=== PATIENT | male | born 1955 | race Caucasian/White ===

== ENCOUNTER 2018-04-10 12:34 | Inpatient (IN) ==
[2018-04-10] MEDS ORDERED: predniSONE 20 MG TABLET PO ONE (12:49)
[2018-04-10] MEDS ORDERED: Ipratropium/Albuterol Neb 3 ML IH ONE (12:49)
--- NOTE | 2018-04-10 13:04 | Emergency Department Note ---
Disposition Clinical Impression: Acute exacerbation of chronic obstructive airways disease, Elevated troponin, ESRD (end stage renal disease) Community acquired pneumonia Qualifiers: Laterality: right Lung location: lower lobe of lung Qualified Code(s): J18.1 - Lobar pneumonia, unspecified organism Disposition: Admitted As Inpatient Time of Disposition: 14:09 SOB HPI - General Chief Complaint: ED Shortness of Breath/Dyspnea Stated Complaint: "low O2 Sat" Time Seen by Provider: 04/10/18 12:39 Source: patient Mode of arrival: ambulatory Limitations: no limitations Nursing Notes Reviewed: Yes Vital Signs Reviewed: Yes - History of Present Illness 62-year-old male with history of COPD wearing 2.5 L nasal cannula oxygen around- the-clock, ESRD on dialysis MWF with [facility] Ortiz, arrives to the emergency room shortness of breath. The patient was diagnosed with mycoplasma pneumonia roughly 1 month ago. The patient was prescribed anabolic and was admitted to the hospital. The patient was discharged home. The patient states that since then he is sobering short of breath but is progressively gotten worse. The patient states that he has associated chest pain is been ongoing past month well. In addition the patient is been increasing his O2 demand from 2.5-3 L nasal cannula. The patient states that this is much worse. He went to his PCP today and he was noted to be 74% on his 3 L nasal cannula. He was sent over to the emergency room for evaluation. Arrival emergency department the patient using accessory muscles as well as tripoding slightly. The patient was in mild to moderate respiratory distress. He was able to speak in 4-5 word sentences. The patient was quickly placed on BiPAP and he will come to our monitor. Labs and chest x-ray are pending at this time. - Related Data Home Medications Medication Instructions Recorded Confirmed Gemfibrozil [Lopid] 600 mg PO DAILY 07/07/15 04/10/18 Insulin ASPART [NovoLOG] 2 - 7 unit SQ ACHS 07/07/15 04/10/18 Ipratropium/Albuterol Sulfate 4 gm IH QID PRN 07/07/15 04/10/18 [Combivent Respimat Inhal [place]] Levothyroxine [Synthroid] 150 mcg PO DAILY 07/07/15 04/10/18 Pravastatin Sodium [Pravachol] 40 mg PO DAILY 07/07/15 04/10/18 Acetaminophen 650 mg PO BID 06/07/16 04/10/18 Montelukast [Singulair] 10 mg PO HS 06/07/16 04/10/18 Pantoprazole Sodium [Protonix] 20 mg PO DAILY 06/07/16 04/10/18 Insulin Glargine,Hum.rec.anlog 80 units SQ BID 06/08/16 04/10/18 [Toujeo Solostar] Fluticasone Propionate Nasal 1 spray NS DAILY 06/10/16 04/10/18 [Flonase] Amlodipine Besylate 10 mg PO DAILY 04/10/18 04/10/18 Calcium Carbonate/Vitamin D3 2 each PO BID 04/10/18 04/10/18 [Liquid Calcium 600-Vit D3 Sfgl] Fluticasone/Salmeterol [Advair 1 puff IH BID 04/10/18 04/10/18 250-50 Diskus] HydrOXYzine [HydrOXYzine] 10 mg PO TID 04/10/18 04/10/18 Ipratropium Neb [Atrovent Neb] 0.5 mg IH QID 04/10/18 04/10/18 Losartan Potassium [Cozaar] 50 mg PO DAILY 04/10/18 04/10/18 Metoprolol Succinate [Toprol Xl] 100 mg PO DAILY 04/10/18 04/10/18 Multivitamin [One Daily Essential] 1 tab PO DAILY 04/10/18 04/10/18 Nystatin/Triamcinolone CRM 1 appl TP BID 04/10/18 04/10/18 [Mycolog] Ondansetron HCl [Ondansetron HCl] 4 mg PO Q8H PRN 04/10/18 04/10/18 Sevelamer [Renvela] 1,600 mg PO DAILY 04/10/18 04/10/18 Sevelamer [Renvela] 3,200 mg PO TIDWM 04/10/18 04/10/18 Tramadol HCl [Ultram] 100 mg PO Q6H PRN 04/10/18 04/10/18 Allergies Allergy/AdvReac Type Severity Reaction Status Date / Time Amoxicillin [From Augmentin] Allergy Diarrhea Verified 04/10/18 14:47 cephalexin [From Keflex] Allergy Rash Verified 04/10/18 14:47 ciprofloxacin Allergy Hives Verified 04/10/18 14:47 clavulanic acid Allergy Diarrhea Verified 04/10/18 14:47 [From Augmentin] codeine Allergy Rash Verified 04/10/18 14:47 hydrocodone Allergy Rash Verified 04/10/18 14:47 morphine Allergy Vomiting Verified 04/10/18 14:47 nabumetone [From Relafen] Allergy Anxiety Verified 04/10/18 14:47 All systems ED: reviewed and negative except as stated. Constitutional: Denies: fever, chills, weakness ENT ED: Reports: congestion Cardiovascular: Reports: chest pain, dyspnea on exertion, orthopnea, edema. Denies: syncope Respiratory: Reports: cough, dyspnea, wheezes, sputum production Gastrointestinal: Denies: abdominal pain, nausea, vomiting, diarrhea Genitourinary: Denies: urgency, dysuria Musculoskeletal: Denies: back pain Integumentary: Denies: rash Neurological: Denies: headache Psychiatric: Denies: anxiety Past Medical History - Past Medical History Attestation: Yes The following information was validated with the patient. Source: patient, old records reviewed Medical history: Reports: asthma, DVT, diabetes, dialysis, GERD, hyperlipidemia , hypertension, renal disease, thyroid disease, other (Obstructive sleep apnea) Surgical history: Reports: IVC Filter, vascular surgery, other (Kidney stents) Psychiatric history: Reports: no psych history - Social History Smoking Status: Never smoker Smokeless Tobacco Status: No Alcohol use: Reports: none Drug use: Reports: none Physical Exam - General Limitations: no limitations General appearance: alert, in distress (mild to moderate respiratory) - Head Head exam: atraumatic, normocephalic, normal inspection - Eye Eye exam: Present: normal appearance, PERRL, EOMI - ENT ENT exam: normal exam, normal oropharynx, mucous membranes moist - Neck Neck exam: Present: normal inspection, full ROM, trachea midline - Chest Chest inspection: Present: normal inspection, symmetric chest wall rise - Respiratory Respiratory exam: Present: respiratory distress (mild to moderate), wheezes, accessory muscle use - Cardiovascular Cardiovascular exam: Present: regular rate, normal rhythm, normal heart sounds - Abdominal Exam Abdominal exam: Present: soft, Non-Tender. Absent: tenderness, distention, guarding, rebound, rigidity - Extremities Exam Extremities exam: Present: normal inspection, full ROM. Absent: tenderness, pedal edema - Neurological Exam Neurological exam: Present: alert, oriented X3 - Skin Skin exam: Present: warm, dry, intact, normal color Course Vital Signs Respiratory Rate 26 04/10/18 13:16 O2 Sat by Pulse Oximetry 96 04/10/18 13:16 Temperature 98.2 F 04/10/18 13:29 Pulse Rate 93 04/10/18 13:45 Respiratory Rate 18 04/10/18 13:45 Blood Pressure 155/76 04/10/18 13:45 O2 Sat by Pulse Oximetry 100 04/10/18 13:45 Oxygen Delivery Oxygen Delivery Bipap Shortness of Breath/Dyspnea - MDM Narrative Medical decision making narrative: Patient's workup in the emergency department demonstrates findings consistent with pneumonia as well as fluid overload. The patient likely has a COPD exacerbation as well. Patient is resting comfortably on BiPAP at this time. He responded very quickly to the DuoNeb's as well as BiPAP. Patient does have bilateral pulmonary edema and/or did receive dialysis one day ago. Patient does have an elevated troponin but his troponins in the past have been elevated. The patient's troponin today is mildly elevated compared to previous. He was administered aspirin. No EKG changes from EKG of from May 2017. The patient will likely a cardiology consult of her hospitalist. In addition the patient was started on Zosyn and vancomycin for possible pneumonia. The patient will be admitted to the hospital at this time. Accepted by Dr. Callejas. - Medical Records Medical records reviewed: Yes I reviewed the patient's medical records. - Lab Data Lab results reviewed: Yes I reviewed the patient's lab results. Result diagrams: 04/10/18 12:54 04/10/18 12:54 Lab Results 04/10/18 04/10/18 04/10/18 Range/Units 12:54 12:54 12:54 WBC 6.1 (4.3-11.1) K/mcL RBC 2.75 L (4.19-5.50) M/mcL Hgb 8.9 L (12.9-16.9) g/dL Hct 27.7 L (37.5-50.1) % MCV 100.7 H (83.0-100.0) fL MCH 32.4 (28.0-33.3) pg MCHC 32.1 (31.6-35.5) g/dL RDW 15.7 H (11.5-14.5) % Plt Count 119 L (140-400) K/mcL MPV 10.7 (9.4-12.4) fL Immature Gran % 0.3 (0-4) % Seg Neutrophils % 73.3 % Lymphocytes % 16.7 % Monocytes % 6.9 % Eosinophils % 2.1 % Basophils % 0.7 % Neutrophils # 4.5 (1.6-8.9) K/mcL Lymphocytes # 1.0 (0.6-4.6) K/mcL Monocytes # 0.4 (0.0-1.3) K/mcL Eosinophils # 0.1 (0.0-0.6) K/mcL Basophils # 0.0 (0.0-0.2) K/mcL Sodium 141 (136-145) mEq/L Potassium 4.1 (3.5-5.1) mEq/L Chloride 95 L (98-107) mEq/L Carbon Dioxide 30 H (23-29) mEq/L BUN 47 H (8-23) mg/dL Creatinine 6.71 H (0.70-1.30) mg/dL Est GFR ( Amer) 10 L (> 60) Est GFR (Non-Af Amer) 8 L (> 60) BUN/Creatinine Ratio 7 (6-26) Glucose 229 H (70-105) mg/dL Calculated Osmolality 312 H (280-300) Calcium 8.8 (8.6-10.3) mg/dL Troponin I 0.37 H* (< 0.04) ng/mL B-Natriuretic Peptide 1858 H (Less than 100) pg/mL - Radiology Data Radiology results reviewed: Yes I reviewed the patient's radiology results. Chest X-Ray 04/10/18 12:49 IMPRESSION: Cephalization the pulmonary vascularity with right-sided infiltrate and small bilateral effusions likely secondary to congestive changes cannot exclude the possibility of an underlying pneumonia. D/ / Felipe Roach MD / Felipe Roach MD Interpreting Provider: Felipe Roach MD - EKG Data EKG attestation: Yes I reviewed and interpreted this EKG. EKG results narrative: Heart rate 86 bpm. Concern for atrial fibrillation versus sinus arrhythmia. No ST elevation or ST depression. EKG overall similar to EKG from 06/08/2016. Repeat EKG heart rate 88 bpm. Normal sinus rhythm with first-degree AV block. No ST elevation or ST depression noted. Critical Care Time Critical Care Time: Yes Total Critical Care Time: 35 Attestation: The high probability of a clinically significant, sudden or life threatening deterioration of the cardiovascular and respiratory system(s) required my full and direct attention, intervention and personal management. The aggregate critical care time was 35 minutes. This time is in addition to time spent performing reported procedures but includes the following: x Data Review and interpretation x Patient assessment and monitoring of vital signs x Documentation x Medication orders and management Attestation Statement - Attestation Attestation: I, Dayo Guerra, examined this patient and my medical decision-making was reviewed with the GEOMETRY TUTOR/PA/Advanced Practice Nurse/Resident Physician. I agree with the documented findings, disposition and treatment plan as described except to the extent set forth below. 62-year-old male presents emergency Department with concerns of difficulty breathing. Patient initially satting in the 70s on arrival. Patient reports his difficulty breathing has worsened over the past few days and feels somewhat similar to his previous COPD exacerbations. Patient is a dialysis patient receiving treatments Monday, Monday, Monday. He follows Dr. Leyva for his nephrology care. Patient denies recent changes in his medications. He states he tolerated a full session of dialysis yesterday. Bilateral lower extremity are swollen however he states that they are at his baseline. Patient denies recent fever although he does have a persistent cough. Chest x-ray shows possible infiltrate. There is also quite a bit of vascular congestion of the chest x-ray. Patient improved significantly while on BiPAP. Patient has no chest pain emergency department. Patient has elevated troponin however he has had elevated troponin similarly in the past. EKG did not show significant change from previous EKG. He started on antibiotics in the emergency department for possible pneumonia and will be admitted to the hospitalist for further care and evaluation.
[2018-04-10 13:09] LABS: Basophils % 0.7 %; Eosinophils # 0.1 K/mcL (0.0-0.6); Eosinophils % 2.1 %; Hematocrit 27.7 % (37.5-50.1); Hemoglobin 8.9 g/dL (12.9-16.9); Immature Granulocytes % 0.3 % (0-4); Lymphocytes % 16.7 %; Mean Corpuscular HGB Conc 32.1 g/dL (31.6-35.5); Mean Corpuscular Hemoglobin 32.4 pg (28.0-33.3); Mean Corpuscular Volume 100.7 fL (83.0-100.0); Mean Platelet Volume 10.7 fL (9.4-12.4); Monocytes # 0.4 K/mcL (0.0-1.3); Monocytes % 6.9 %; Neutrophils # 4.5 K/mcL (1.6-8.9); Platelet Count 119 K/mcL (140-400); Red Blood Count 2.75 M/mcL (4.19-5.50); Red Cell Distribution Width 15.7 % (11.5-14.5); Segmented Neutrophils % 73.3 %
[2018-04-10 13:35] LABS: Troponin I 0.37 ng/mL (< 0.04)
[2018-04-10] MEDS ORDERED: Aspirin 325 MG TABLET PO ONE (13:35)
[2018-04-10] MEDS ORDERED: Piperacillin/Tazobactam 3.375 GM in 0.9 % Sodium Chloride Mini Bag 100 ML IVPB ONE (13:44)
[2018-04-10 13:54] LABS: Calcium 8.8 mg/dL (8.6-10.3); Potassium 4.1 mEq/L (3.5-5.1)
--- NOTE | 2018-04-10 17:56 | Internal Med History&Physical ---
Date of Encounter: 04/10/18 Time of Encounter: 17:00 Internal Medicine - H&P: HPI Chief complaint: Shortness of breath Admitted From: Long-term Nursing Facility Plans for Post Hospital Care: Transfer Snf Facility History of present illness: Patient is a 62-year-old male with past medical history significant for hypertension, hyperlipidemia, diabetes, hypothyroid, COPD, lymphedema and GAGAN who presents to the ER on 04/10/18 due to shortness of breath. Patient was recently treated at [facility] for mycoplasma pneumonia and was discharged to [facility] facility at [place] for strengthening conditioning. Patient reports while at the [facility] facility at the [place], his shortness of breath never really improved and progressively gotten worse in the last couple days. Patient was sent to [facility] ER for evaluation. In the ER, patient was found to have elevated BNP of 1858 with elevated troponin of 0.37 in addition to vascular congestion on chest x-ray. Patient also found to have acute on chronic kidney disease. Patient will be admitted to medical surgical floor for elevated cardiac biomarkers with COPD exacerbation secondary to pneumonia and CHF. Past Med Surg Social Fam HX - Past Medical History Medical history: asthma, DVT, diabetes, dialysis, GERD, hyperlipidemia, hypertension, renal disease, thyroid disease, other Additional medical history: sleep apnea, hypothyroid, lymphedema Psychiatric history: no psych history - Past Surgical History Surgical History: IVC Filter, vascular surgery, other Additional surgical history: umbilical hernia repair, cataract surgery, stent in bilateral kidneys - Social History Smoking Status: Never smoker Smokeless Tobacco Status: No Alcohol use: none Drug use: none - Family History Father Living Status: Internal Medicine - H&P: Meds Gemfibrozil [Lopid] 600 mg PO DAILY 07/07/15 [History] Insulin ASPART [NovoLOG] 2 - 7 unit SQ ACHS 07/07/15 [History] Ipratropium/Albuterol Sulfate [Combivent Respimat Inhal [place]] 4 gm IH QID PRN 07/07/15 [History] Levothyroxine [Synthroid] 150 mcg PO DAILY 07/07/15 [History] Pravastatin Sodium [Pravachol] 40 mg PO DAILY 07/07/15 [History] Acetaminophen 650 mg PO BID 06/07/16 [History] Montelukast [Singulair] 10 mg PO HS 06/07/16 [History] Pantoprazole Sodium [Protonix] 20 mg PO DAILY 06/07/16 [History] Insulin Glargine,Hum.rec.anlog [Toujeo Solostar] 80 units SQ BID 06/08/16 [ History] Fluticasone Propionate Nasal [Flonase] 1 spray NS DAILY 06/10/16 [History] Amlodipine Besylate 10 mg PO DAILY 04/10/18 [History] Calcium Carbonate/Vitamin D3 [Liquid Calcium 600-Vit D3 Sfgl] 2 each PO BID [History] Fluticasone/Salmeterol [Advair 250-50 Diskus] 1 puff IH BID 04/10/18 [History] HydrOXYzine [HydrOXYzine] 10 mg PO TID 04/10/18 [History] Ipratropium Neb [Atrovent Neb] 0.5 mg IH QID 04/10/18 [History] Losartan Potassium [Cozaar] 50 mg PO DAILY 04/10/18 [History] Metoprolol Succinate [Toprol Xl] 100 mg PO DAILY 04/10/18 [History] Multivitamin [One Daily Essential] 1 tab PO DAILY 04/10/18 [History] Nystatin/Triamcinolone CRM [Mycolog] 1 appl TP BID 04/10/18 [History] Ondansetron HCl [Ondansetron HCl] 4 mg PO Q8H PRN 04/10/18 [History] Sevelamer [Renvela] 1,600 mg PO DAILY 04/10/18 [History] Sevelamer [Renvela] 3,200 mg PO TIDWM 04/10/18 [History] Tramadol HCl [Ultram] 100 mg PO Q6H PRN 04/10/18 [History] 3 Allergy/AdvReac Type Severity Reaction Status Date / Time Amoxicillin [From Augmentin] Allergy Diarrhea Verified 04/10/18 14:47 cephalexin [From Keflex] Allergy Rash Verified 04/10/18 14:47 ciprofloxacin Allergy Hives Verified 04/10/18 14:47 clavulanic acid Allergy Diarrhea Verified 04/10/18 14:47 [From Augmentin] codeine Allergy Rash Verified 04/10/18 14:47 hydrocodone Allergy Rash Verified 04/10/18 14:47 morphine Allergy Vomiting Verified 04/10/18 14:47 nabumetone [From Relafen] Allergy Anxiety Verified 04/10/18 14:47 All Systems PM: A 10-system review of systems was performed and is negative for pertinent findings except as documented above in the HPI. - Constitutional Vitals: Temp Pulse Resp BP Pulse Ox 98.0 F 71 17 185/76 97 04/10/18 16:12 04/10/18 16:12 04/10/18 16:12 04/10/18 16:12 04/10/18 16:12 General appearance: Present: A&O X 3, no acute distress - Eye Eye exam: Present: normal appearance - ENT ENT exam: Present: mucous membranes moist - Respiratory Respiratory exam: Present: CTAB. Absent: accessory muscle use, rales, rhonchi, wheezes - Cardiovascular Cardiovascular exam: Present: RRR, +S1, +S2. Absent: diastolic murmur, gallop, rubs, systolic murmur - GI/Abdominal GI/Abdominal exam: Present: normal bowel sounds, soft, no peritoneal signs. Absent: distended, tenderness - Expanded Lower Extremities Exam Ankle exam: Present: swelling (Trace bilateral lower extremity edema) - Neurological Exam Neurological exam: Present: no focal deficits - Psychiatric Psychiatric exam: Present: normal mood - Skin Skin exam: Present: normal color Internal Med - H&P Results - Labs CBC & Chem 7: 04/10/18 12:54 04/10/18 12:54 - Assessment and plan (1) HCAP (healthcare-associated pneumonia) Current Visit: Yes Status: Acute Assessment and plan: Patient with a history of mycoplasma pneumonia treated approximate one month ago at [facility] Patient found to have right lower lobe pneumonia on chest x-ray in the ER Will treat with IV Levaquin, IV vancomycin and IV Zosyn (2) Acute exacerbation of chronic obstructive airways disease Current Visit: Yes Status: Acute Assessment and plan: Secondary to the above Will continue dual nebs and IV Solu-Medrol Will continue BiPAP as well (3) CHF (congestive heart failure) Current Visit: Yes Status: Acute Assessment and plan: Patient with elevated troponin of 0.37 and a BNP of 1858 with vascular congestion on chest x-ray Will treat patient IV Lasix 40 mg 1 and reevaluate in the morning due to acute on chronic renal failure Qualifiers: Heart failure chronicity: unspecified Qualified Code(s): I50.9 - Heart failure, unspecified (4) Elevated troponin Current Visit: Yes Status: Acute Assessment and plan: Patient with elevated troponin of 0.37 as above Will monitor on telemetry and trend troponins Cardiology consult and appreciate recommendations (5) ESRD (end stage renal disease) Current Visit: Yes Status: Chronic Assessment and plan: Patient follows Dr. Leyva Creatinine 6.71 today; last creatinine 9.23 on 05/2016 Nephrology consulted and appreciate recommendations (6) Diabetes mellitus Current Visit: No Status: Resolved Assessment and plan: Continue home medications Qualifiers: Diabetes mellitus type: type 2 Diabetes mellitus oil heaterman insulin use: with shelter use Diabetes mellitus complication status: with kidney complications Diabetes mellitus complication detail: with chronic kidney disease Chronic kidney disease stage: on chronic dialysis Qualified Code(s) : E11.22 - Type 2 diabetes mellitus with diabetic chronic kidney disease; N18.6 - End stage renal disease; Z79.4 - terminal make up operator (current) use of insulin; Z99.2 - Dependence on renal dialysis (7) GERD (gastroesophageal reflux disease) Current Visit: No Status: Chronic Assessment and plan: Continue home medications Qualifiers: Esophagitis presence: esophagitis presence not specified Qualified Code(s) : K21.9 - Gastro-esophageal reflux disease without esophagitis (8) HTN (hypertension) Current Visit: No Status: Chronic Assessment and plan: Continue home medications Qualifiers: Hypertension type: essential hypertension Qualified Code(s): I10 - Essential (primary) hypertension (9) GAGAN (obstructive sleep apnea) Current Visit: No Status: Chronic Assessment and plan: Will continue BiPAP overnight (10) DVT prophylaxis Current Visit: Yes Status: Acute Assessment and plan: Subcutaneous heparin - Time Spent With Patient Total time spent is greater than 50% in coordination of care (as documented) at patient's floor/unit and/or counseling patient:
[2018-04-10] MEDS ORDERED: Naloxone 0.4 MG/ML INJ IVP PRN ×2 (18:16→18:29)
[2018-04-10] MEDS ORDERED: Furosemide 80 MG in 0.9 % Sodium Chloride 50 ML IVPB ONE (18:24)
[2018-04-10] MEDS ORDERED: Ipratropium/Albuterol Neb 3 ML IH PRN (18:31)
[2018-04-10] MEDS ORDERED: traMADol 50 MG TABLET PO PRN (18:31)
[2018-04-10] MEDS ORDERED: Levofloxacin 750 MG/150 ML 750 MG/150 ML BAG IVPB SCH (19:00)
[2018-04-10] MEDS ORDERED: Vancomycin 1 EACH in 0.9 % Sodium Chloride 250 ML IVPB SCH (19:00)
[2018-04-10] MEDS ORDERED: Perflutren Lipid Microsphere 1.3 ML in 0.9 % Sodium Chloride 8.7 ML IVP ONE (22:54)
[2018-04-10] MEDS: Ipratropium Neb 0.5 MG NEBULIZER IH SCH (23:36)
[2018-04-10] MEDS: Budesonide/Formoterol 80/4.5 MDI IH SCH (23:36)
[2018-04-10] MEDS: MethylPREDNISolone 40 MG/ML VIAL IVP SCH (23:46)
[2018-04-11 00:36] LABS: Basophils % 0.2 %; Hemoglobin 8.9 g/dL (12.9-16.9); Immature Granulocytes % 0.4 % (0-4); Lymphocytes # 0.3 K/mcL (0.6-4.6); Lymphocytes % 6.5 %; Mean Corpuscular Hemoglobin 33.2 pg (28.0-33.3); Mean Corpuscular Volume 100.7 fL (83.0-100.0); Mean Platelet Volume 11.1 fL (9.4-12.4); Monocytes # 0.2 K/mcL (0.0-1.3); Monocytes % 3.6 %; Neutrophils # 4.3 K/mcL (1.6-8.9); Platelet Count 111 K/mcL (140-400); Red Blood Count 2.68 M/mcL (4.19-5.50); Red Cell Distribution Width 15.4 % (11.5-14.5); Segmented Neutrophils % 89.3 %
[2018-04-11 00:54] LABS: Calcium 8.7 mg/dL (8.6-10.3)
[2018-04-11] MEDS: Piperacillin/Tazobactam 3.375 GM in 0.9 % Sodium Chloride Mini Bag 100 ML IVPB SCH ×2 (03:22→17:54)
[2018-04-11] MEDS: Ipratropium Neb 0.5 MG NEBULIZER IH SCH ×4 (04:43→22:03)
[2018-04-11] MEDS: *HR* Heparin 5,000 UNIT/ML VIAL SQ SCH ×2 (07:46→17:53)
[2018-04-11] MEDS: Acetaminophen 325 MG TABLET PO SCH ×2 (08:41→20:15)
[2018-04-11] MEDS: MethylPREDNISolone 40 MG/ML VIAL IVP SCH ×2 (08:41→17:54)
[2018-04-11] MEDS: Cholecalciferol (D-3) 1,000 UNIT TABLET PO SCH (08:41)
[2018-04-11] MEDS ORDERED: *HR* Dextrose 50 % in Water (Syg) 50 ML SYRINGE IVP PRN (08:58)
[2018-04-11] MEDS ORDERED: Dextrose Gel 15 GM/37.5 ML TUBE PO PRN ×2 (08:58)
[2018-04-11] MEDS ORDERED: D5% in Water 1,000 ML IVC PRN (08:58)
[2018-04-11] MEDS ORDERED: traMADol 50 MG TABLET PO PRN (09:02)
--- NOTE | 2018-04-11 10:06 | Cardiology Consult Note ---
<JoseMary Gracebushra Anderson - Last Filed: 04/11/18 10:02> Date of Encounter: 04/11/18 Time of Encounter: 09:00 Assessment and Plan (1) HCAP (healthcare-associated pneumonia) Current Visit: Yes Status: Acute Per cardiology: -Recently treated for pneumonia at [facility]. -Currently being treated for pneumonia. -On ATB. -Management per primary service. (2) CHF (congestive heart failure) Current Visit: Yes Status: Acute Per cardiology: -BNP 1800s on admission. -Chest x-ray with increased pulmonary vasculature, small bilateral pleural effusions. -TTE pending -Previous TTE 05/2016 states LVEF appears normal. RV dilated with normal function , no segmental wall motion abnormalities. -Reports orthopnea. -Denies increased edema or weight gain. -Baseline weight about 324 pounds. Weight today 312 pounds -Was given IV lasix x1. No urine output recorded. -OF note, ESRD on HD. Denies missed dialysis treatments. -ON BB, ARB. -Appreciate nephrology assistance with volume status. -Further recommendations pending TTE. Qualifiers: Heart failure type: unspecified Heart failure chronicity: unspecified Qualified Code(s): I50.9 - Heart failure, unspecified (3) Elevated troponin Current Visit: Yes Status: Chronic Per cardiology: -Troponins 0.37, 0.34, 0.29, 0.27 in the setting of Pneumonia, CHF, ESRD. Of note, 2016 troponins also elevated. -Denies chest pain. -ECG with no acute ischemic changes. -TTE pending. -Reports previous LCH "many years ago" with no intervention. -On statin, BB. Not on ASA due to anemia, thrombocytopenia. -Do not suspect NSTEMI, suspect demand ischemia related to above. No cardiac rehab consult warranted. -Further recommendations pending TTE. Discussion w patient/family: The assessment and plan as outlined above was discussed with the patient who expressed understanding and agreement. All questions were answered. Thank you for involving us in the care of your patient. Please call with any questions. Discussed and reviewed with . History of Present Illness Consult date: 04/10/18 Requesting physician: Heber Callejas Consult reason: elevated troponin, chf Chief complaint: shortness of breath History of present illness: Mr. Waddell is a 62 year old male with a relevant past medical history of DM, HTN , HLD, lymphedema, hypothyroidism, GERD, GAGAN, obesity, COPD, ESRD on HD who presented to [facility] with complaints of increased shortness of breath. Patient reports using home O2 at all times at 2.5LPM. Patient reports orthopnea, however states chronic. Patient denies increased edema or weight gain. Patient denies chest pain. Reports fatigue. Patient states that he was recently treated for pneumonia at [facility]. Patient denies missed dialysis treatments. Past Med Surg Social Fam HX - Past Medical History Attestation: Yes The following information was validated with the patient. Source: patient, old records reviewed Medical history: asthma, DVT, diabetes, dialysis, GERD, hyperlipidemia, hypertension, renal disease, thyroid disease, other (Obstructive sleep apnea) Additional medical history: sleep apnea, hypothyroid, lymphedema Psychiatric history: no psych history - Past Surgical History Surgical History: IVC Filter, vascular surgery, other (Kidney stents) Additional surgical history: umbilical hernia repair, cataract surgery, stent in bilateral kidneys - Social History Smoking Status: Never smoker Smokeless Tobacco Status: No Alcohol use: none Drug use: none - Family History Father Living Status: Medications and Allergies Gemfibrozil [Lopid] 600 mg PO DAILY 07/07/15 [History] Insulin ASPART [NovoLOG] 2 - 7 unit SQ ACHS 07/07/15 [History] Ipratropium/Albuterol Sulfate [Combivent Respimat Inhal [place]] 4 gm IH QID PRN 07/07/15 [History] Levothyroxine [Synthroid] 150 mcg PO DAILY 07/07/15 [History] Pravastatin Sodium [Pravachol] 40 mg PO DAILY 07/07/15 [History] Acetaminophen 650 mg PO BID 06/07/16 [History] Montelukast [Singulair] 10 mg PO HS 06/07/16 [History] Pantoprazole Sodium [Protonix] 20 mg PO DAILY 06/07/16 [History] Insulin Glargine,Hum.rec.anlog [Toujeo Solostar] 80 units SQ BID 06/08/16 [ History] Fluticasone Propionate Nasal [Flonase] 1 spray NS DAILY 06/10/16 [History] Amlodipine Besylate 10 mg PO DAILY 04/10/18 [History] Calcium Carbonate/Vitamin D3 [Liquid Calcium 600-Vit D3 Sfgl] 2 each PO BID [History] Fluticasone/Salmeterol [Advair 250-50 Diskus] 1 puff IH BID 04/10/18 [History] HydrOXYzine [HydrOXYzine] 10 mg PO TID 04/10/18 [History] Ipratropium Neb [Atrovent Neb] 0.5 mg IH QID 04/10/18 [History] Losartan Potassium [Cozaar] 50 mg PO DAILY 04/10/18 [History] Metoprolol Succinate [Toprol Xl] 100 mg PO DAILY 04/10/18 [History] Multivitamin [One Daily Essential] 1 tab PO DAILY 04/10/18 [History] Nystatin/Triamcinolone CRM [Mycolog] 1 appl TP BID 04/10/18 [History] Ondansetron HCl [Ondansetron HCl] 4 mg PO Q8H PRN 04/10/18 [History] Sevelamer [Renvela] 1,600 mg PO DAILY 04/10/18 [History] Sevelamer [Renvela] 3,200 mg PO TIDWM 04/10/18 [History] Tramadol HCl [Ultram] 100 mg PO Q6H PRN 04/10/18 [History] 3 Allergy/AdvReac Type Severity Reaction Status Date / Time Amoxicillin [From Augmentin] Allergy Diarrhea Verified 04/10/18 14:47 cephalexin [From Keflex] Allergy Rash Verified 04/10/18 14:47 ciprofloxacin Allergy Hives Verified 04/10/18 14:47 clavulanic acid Allergy Diarrhea Verified 04/10/18 14:47 [From Augmentin] codeine Allergy Rash Verified 04/10/18 14:47 hydrocodone Allergy Rash Verified 04/10/18 14:47 morphine Allergy Vomiting Verified 04/10/18 14:47 nabumetone [From Relafen] Allergy Anxiety Verified 04/10/18 14:47 All Systems Review: The remainder of the systems were reviewed and are negative - Cardiovascular Cardiovascular: as per HPI, dyspnea on exertion, orthopnea Physical Examination Vital Signs, Last 4 Hours Temp Pulse Resp BP Pulse Ox 04/11/18 07:34 97.1 F L 77 18 148/67 96 General: Conversant, No Apparent Distress HEENT: Atraumatic, Normocephaly, Mucus Membranes Moist Neck: No JVD, Normal carotid pulses Cardiac: Reg Rate and Rhythm, Normal S1 and S2, No Murmur Lungs: Other (Lung sounds diminished throughout. ) Neuro: Alert and responsive, No focal deficits noted Abdomen: Soft, Non-Tender Skin: No rashes noted on visualized skin Musculoskeletal: No Chest Wall Tenderness Extremities: No Clubbing, No Cyanosis, Normal Pulses, Other (Chronic lymphedema noted to bilateral lower extremities. ) Results 04/11/18 00:22 04/11/18 00:22 Lab Results Impressions Chest X-Ray 04/10/18 12:49 IMPRESSION: Cephalization of the pulmonary vascularity with right-sided infiltrate and small bilateral effusions likely secondary to congestive changes. Cannot exclude the possibility of an underlying pneumonia. D/ / 04/10/2018 13:45:39 Felipe Roach MD / earnold Interpreting Provider: Felipe Rocah MD Active Medications Acetaminophen (Tylenol) 650 mg PO BID [facility] Stop: 10/11/18 09:01 Last Admin: 04/11/18 08:41 Dose: 650 mg Albuterol/Ipratropium (Duoneb) 3 ml IH QID PRN PRN Reason: Wheezing Amlodipine Besylate (Norvasc) 10 mg PO DAILY [facility] Stop: 10/11/18 09:01 Atorvastatin Calcium (Lipitor) 10 mg PO DAILY [facility] Stop: 10/11/18 09:01 Budesonide/Formoterol Fumarate (Symbicort) 2 puff IH BIDR [facility] Stop: 10/10/18 22:01 Last Admin: 04/10/18 23:36 Dose: 2 puff Calcium Carbonate (Tums) 500 mg PO BID [facility] Stop: 10/10/18 21:01 Last Admin: 04/11/18 08:40 Dose: 500 mg Dextrose/Water (Dextrose 50% (Syg)) 25 ml IVP AD PRN PRN Reason: Hypoglycemia Stop: 10/11/18 08:59 Fluticasone Propionate (Flonase) 50 mcg NS DAILY [facility] PRN Reason: Protocol Stop: 10/11/18 09:01 Gemfibrozil (Lopid) 600 mg PO DAILY [facility] Stop: 12/20/18 09:01 Glucagon (Glucagen) 1 mg IM ONCE PRN PRN Reason: Hypoglycemia Stop: 10/11/18 08:59 Glucose (Gluctose) 15 gm PO ONCE PRN PRN Reason: Hypoglycemia Stop: 10/11/18 08:59 Glucose (Gluctose) 30 gm PO ONCE PRN PRN Reason: Hypoglycemia Stop: 10/11/18 08:59 Heparin Sodium (Porcine) (Heparin) 5,000 unit SQ Q12HCO [facility] Stop: 10/11/18 06:01 Last Admin: 04/11/18 07:46 Dose: 5,000 unit Hydroxyzine HCl (Hydroxyzine) 10 mg PO TID [facility] Stop: 10/10/18 21:01 Last Admin: 04/11/18 08:41 Dose: 10 mg Levofloxacin/Dextrose (Levaquin Premix 750mg/150 Ml) 750 mg in 150 mls @ 100 mls/hr IVPB Q48H [facility] PRN Reason: Protocol Stop: 10/10/18 19:01 Last Admin: 04/10/18 23:46 Dose: 100 mls/hr Piperacillin Sod/Tazobactam (Sod 3.375 gm/ Sodium Chloride) 100 mls @ 25 mls/ hr IVPB Q12H [facility] Stop: 10/11/18 03:01 Last Admin: 04/11/18 03:22 Dose: 25 mls/hr Vancomycin HCl 1 each/ Sodium (Chloride) 250 mls @ 167 mls/hr IVPB RPHPROT [facility] PRN Reason: Protocol Stop: 10/10/18 19:01 Vancomycin HCl 1,000 mg/ (Sodium Chloride) 250 mls @ 167 mls/hr IVPB ONCE ONE PRN Reason: Protocol Stop: 04/11/18 10:14 Dextrose (Dextrose 5%) 1,000 mls @ 100 mls/hr IVC .Q10H PRN PRN Reason: HYPOGLYCEMIA Stop: 10/11/18 08:59 Insulin Detemir (Levemir) 30 unit SQ BID [facility] Stop: 10/11/18 09:01 Insulin Human Lispro (Humalog) 0 units SQ HS [facility] PRN Reason: Protocol Stop: 10/11/18 21:01 Insulin Human Lispro (Humalog) 0 units SQ TIDAC [facility] PRN Reason: Protocol Stop: 10/11/18 11:31 Ipratropium Collyer (Atrovent Neb) 0.5 mg IH QIDR [facility] Stop: 10/10/18 23:01 Last Admin: 04/11/18 04:43 Dose: 0.5 mg Levothyroxine Sodium (Synthroid) 150 mcg PO 0630 [facility] Stop: 10/11/18 06:31 Last Admin: 04/11/18 07:46 Dose: 150 mcg Losartan Potassium (Cozaar) 50 mg PO DAILY [facility] Stop: 10/11/18 09:01 Methylprednisolone (Solu-Medrol) 40 mg IVP Q8HR [facility] Stop: 10/11/18 00:01 Last Admin: 04/11/18 08:41 Dose: 40 mg Metoprolol Succinate (Toprol Xl) 100 mg PO DAILY [facility] Stop: 10/11/18 09:01 Naloxone HCl (Narcan) 0.4 mg IVP Q2MIN PRN PRN Reason: SEE COMMENTS Stop: 10/10/18 18:30 Omeprazole (Prilosec) 20 mg PO 0730 [facility] Stop: 10/11/18 07:31 Sevelamer HCl (Renvela) 1,600 mg PO TIDWM [facility] Stop: 10/11/18 08:01 Last Admin: 04/11/18 08:41 Dose: 1,600 mg Tramadol HCl (Ultram) 50 mg PO Q12H PRN PRN Reason: Pain Stop: 10/10/18 18:32 Vitamin D (Vitamin D) 1,000 unit PO DAILY [facility] Stop: 10/11/18 09:01 Last Admin: 04/11/18 08:41 Dose: 1,000 unit Laboratory Tests 06/08/16 06/08/16 06/10/16 05:05 10:58 04:59 Hgb 9.4 L Plt Count Creatinine Troponin I 0.24 H* 0.39 H* B-Natriuretic Peptide 04/10/18 04/10/18 04/10/18 12:54 12:54 18:40 Hgb Plt Count Creatinine Troponin I 0.37 H* 0.34 H* B-Natriuretic Peptide 1858 H 04/11/18 04/11/18 04/11/18 00:22 00:22 00:22 Hgb 8.9 L Plt Count 111 L Creatinine 7.31 H Troponin I 0.29 H* B-Natriuretic Peptide 04/11/18 06:54 Hgb Plt Count Creatinine Troponin I 0.27 H* B-Natriuretic Peptide - Imaging and Cardiology Chest Xray: report reviewed Echo: pending, report reviewed - EKG Interpretation EKG results cardiology: personally reviewed (ECG withSR, first degree block, HR 88.), other (Telemetry reviewed with average HR previous 12 hours noted to be 83 , SR. PVCs noted.) Consult Discharge Plan - Plan Referrals: Silvio Wheeler DO [Primary Care Provider] - 04/24/18 12:00 pm (Please follow up as schedule....) <Theresa Bernstein - Last Filed: 04/11/18 12:43> Date of Encounter: 04/11/18 - Attending Attestation I examined this patient and my medical decision-making was reviewed with the CLAY MOLDER. I agree with the documented findings, disposition and treatment plan as described. Mr. Waddell presents with HCAP and elevated troponin. He denies chest pain and there are no ECG changes to suggest ischemia. Echo demonstrates preserved LVEF. Given reduced platelet count and Hgb which may be lower than his normal, would recommend conservative management. Consider outpatient stress testing if appropriate. Continue asa with watch on Hgb/plt count, continue statin. Will sign off. Please call with questions. Assessment and Plan Discussion w patient/family: The assessment and plan as outlined above was discussed with the patient and/or family members who expressed understanding and agreement. All questions were answered. Thank you for involving us in the care of your patient. Please call with any questions. History of Present Illness History of present illness: Mr. Waddell is a 62 year old male All Systems Review: The remainder of the systems were reviewed and are negative Physical Examination Vital Signs, Last 4 Hours Resp Pulse Ox 04/11/18 10:57 16 94 Results 04/11/18 00:22 04/11/18 00:22 Lab Results 04/10/18 04/11/18 04/11/18 18:40 00:22 00:22 WBC 4.8 Hgb 8.9 L Hct 27.0 L Plt Count 111 L Sodium 138 Potassium 5.0 Chloride 96 L Carbon Dioxide 26 BUN 54 H Creatinine 7.31 H Glucose 306 H Calcium 8.7 Troponin I 0.34 H* 04/11/18 04/11/18 00:22 06:54 WBC Hgb Hct Plt Count Sodium Potassium Chloride Carbon Dioxide BUN Creatinine Glucose Calcium Troponin I 0.29 H* 0.27 H*
[2018-04-11] MEDS ORDERED: 0.9 % Sodium Chloride 250 ML IVC PRN (10:11)
[2018-04-11] MEDS ORDERED: 0.9 % Sodium Chloride 1,000 ML PRIME SCH (10:15)
[2018-04-11 10:21] LABS: Hepatitis B Surface Antigen Nonreactive (Nonreactive)
[2018-04-11] MEDS: Budesonide/Formoterol 80/4.5 MDI IH SCH ×2 (10:57→22:03)
[2018-04-11] MEDS ORDERED: *HR* Heparin 5,000 UNIT/ML VIAL ONE (12:01)
[2018-04-11] MEDS: Fluticasone Propionate Nasal 50 MCG/SPRAY BOTTLE NS SCH (12:18)
[2018-04-11] MEDS: Insulin DETEMIR 100 UNIT/ML X5UNITS SQ SCH ×2 (12:18→21:18)
[2018-04-11] MEDS: Insulin LISPRO 300 UNITS/3 ML VIAL SQ SCH ×3 (12:19→20:50)
--- NOTE | 2018-04-11 12:45 | Nephrology Consult Note ---
Date of Encounter: 04/11/18 Time of Encounter: 12:00 Assessment and Plan (1) ESRD on hemodialysis Current Visit: Yes Status: Acute Will continue HD with aggressive UF with goal of 4-5kg as tolerated Plan to also have a UF session tomorrow for more fluid removal Fluid restriction advised Strict I/Os Lytes stable (2) Community acquired pneumonia Current Visit: Yes Status: Acute per primary team Qualifiers: Laterality: right Lung location: lower lobe of lung Qualified Code(s): J18.1 - Lobar pneumonia, unspecified organism (3) Anemia Current Visit: Yes Status: Acute hgb noted low at 8.9, will monitor and consider epo Qualifiers: Anemia type: due to chronic kidney disease Chronic kidney disease stage: on chronic dialysis Qualified Code(s): N18.6 - End stage renal disease; D63.1 - Anemia in chronic kidney disease; Z99.2 - Dependence on renal dialysis (4) CHF (congestive heart failure) Current Visit: Yes Status: Acute Per cardio Qualifiers: Heart failure type: unspecified Heart failure chronicity: unspecified Qualified Code(s): I50.9 - Heart failure, unspecified History of Present Illness - Reason for Consult Consult date: 04/11/18 end stage renal disease Requesting physician: Heber Callejas - History of Present Illness 62 y o male with PMH of ESRD on HD, DM, HTN, DM, morbid obesity admitted with SOB after being recently treated for PNA at [facility]. Renal consulted to manage ESRD. Pt seen and examined while on HD. He received lasix 80mg iv overnight and currently having fluid removal via HD, feels slightly better with SOB only. No CP. No N/V. No abd pain. He has a history of LE edema with lymphedema requiring daily compression stockings Past Med Surg Social Fam HX - Past Medical History Medical history: asthma, DVT, diabetes, dialysis, GERD, hyperlipidemia, hypertension, renal disease, thyroid disease, other (Obstructive sleep apnea) Additional medical history: sleep apnea, hypothyroid, lymphedema Psychiatric history: no psych history - Past Surgical History Surgical History: IVC Filter, vascular surgery, other (Kidney stents) Additional surgical history: umbilical hernia repair, cataract surgery, stent in bilateral kidneys - Social History Smoking Status: Never smoker Smokeless Tobacco Status: No Alcohol use: none Drug use: none - Family History Father Living Status: Medications and Allergies Gemfibrozil [Lopid] 600 mg PO DAILY 07/07/15 [History] Insulin ASPART [NovoLOG] 2 - 7 unit SQ ACHS 07/07/15 [History] Ipratropium/Albuterol Sulfate [Combivent Respimat Inhal [place]] 4 gm IH QID PRN 07/07/15 [History] Levothyroxine [Synthroid] 150 mcg PO DAILY 07/07/15 [History] Pravastatin Sodium [Pravachol] 40 mg PO DAILY 07/07/15 [History] Acetaminophen 650 mg PO BID 06/07/16 [History] Montelukast [Singulair] 10 mg PO HS 06/07/16 [History] Pantoprazole Sodium [Protonix] 20 mg PO DAILY 06/07/16 [History] Insulin Glargine,Hum.rec.anlog [Toujeo Solostar] 80 units SQ BID 06/08/16 [ History] Fluticasone Propionate Nasal [Flonase] 1 spray NS DAILY 06/10/16 [History] Amlodipine Besylate 10 mg PO DAILY 04/10/18 [History] Calcium Carbonate/Vitamin D3 [Liquid Calcium 600-Vit D3 Sfgl] 2 each PO BID [History] Fluticasone/Salmeterol [Advair 250-50 Diskus] 1 puff IH BID 04/10/18 [History] HydrOXYzine [HydrOXYzine] 10 mg PO TID 04/10/18 [History] Ipratropium Neb [Atrovent Neb] 0.5 mg IH QID 04/10/18 [History] Losartan Potassium [Cozaar] 50 mg PO DAILY 04/10/18 [History] Metoprolol Succinate [Toprol Xl] 100 mg PO DAILY 04/10/18 [History] Multivitamin [One Daily Essential] 1 tab PO DAILY 04/10/18 [History] Nystatin/Triamcinolone CRM [Mycolog] 1 appl TP BID 04/10/18 [History] Ondansetron HCl [Ondansetron HCl] 4 mg PO Q8H PRN 04/10/18 [History] Sevelamer [Renvela] 1,600 mg PO PRN PRN 04/10/18 [History] Sevelamer [Renvela] 3,200 mg PO TIDWM 04/10/18 [History] Tramadol HCl [Ultram] 100 mg PO Q6H PRN 04/10/18 [History] 3 Allergy/AdvReac Type Severity Reaction Status Date / Time Amoxicillin [From Augmentin] Allergy Diarrhea Verified 04/10/18 14:47 cephalexin [From Keflex] Allergy Rash Verified 04/10/18 14:47 ciprofloxacin Allergy Hives Verified 04/10/18 14:47 clavulanic acid Allergy Diarrhea Verified 04/10/18 14:47 [From Augmentin] codeine Allergy Rash Verified 04/10/18 14:47 hydrocodone Allergy Rash Verified 04/10/18 14:47 morphine Allergy Vomiting Verified 04/10/18 14:47 nabumetone [From Relafen] Allergy Anxiety Verified 04/10/18 14:47 Review of Systems All Systems: reviewed and no additional remarkable complaints except as stated ( 10 systems reviewed) Exam - Vital Signs Vital signs: Initial Vital Signs Resp Pulse Ox 26 96 04/10/18 13:16 04/10/18 13:16 Vital Signs - Last 8 Hours Temp Pulse Resp BP Pulse Ox 04/11/18 10:57 16 94 04/11/18 07:34 97.1 F L 77 18 148/67 96 Intake and Output 04/10/18 04/11/18 04/11/18 23:59 07:59 15:59 Intake Total 240 / 240 Balance 240 / 240 Intake: Oral 240 / 240 Other: Meal Breakfast Percent of Meal Consumed 60% Weight 142.1 kg Blood Glucose* 290 323 Patient Weight 04/11/18 23:59 Weight 142.1 kg - General Appearance General appearance: well-developed, well-nourished EENT: ATNC, mucous membranes moist Neck: no JVD, supple Respiratory: clear (ant bilat) Cardiology: edema (trace LE biat), normal S1, normal S2 - Dialysis Access Dialysis Vascular Access: Arteriovenous Fistula thrill: Yes bruit: Yes Gastrointestinal: no tenderness, no guarding, obese Integumentary: hyperpigmentation, chronic venous stasis (LE bilat) Neurologic: no focal deficit Musculoskeletal: no deformities Psychiatric: mood/affect appropriate, cooperative Results - Lab Results 04/13/18 03:40 04/13/18 03:40 Most recent lab results Calcium 8.7 mg/dL (8.6-10.3) 04/11/18 00:22 Consult Discharge Plan - Plan Additional Instructions: I anticipate the patient's discharge sometime tomorrow. Referrals: Silvio Wheeler DO [Primary Care Provider] - 04/24/18 12:00 pm (Please follow up as schedule....)
--- NOTE | 2018-04-11 14:53 | Electrocardiograph Report ---
[facility] Test Date: 2018-04-10 Pat Name: Marino Waddell Department: 103 Room: 2A14 Gender: Digital Content Marketing Manager: : [id number] Requested By: Silvio Vazquez Order Number: [id number] Reading MD: Zackery Valdovinos Measurements Intervals [place] Rate: 88 P: 248 ND: 273 QRS: -24 QRSD: 110 T: 9 QT: 381 QTc: 426 Interpretive Statements SINUS RHYTHM WITH FIRST DEGREE AV BLOCK SEPTAL MYOCARDIAL INFARCTION [40+ ms Q WAVE IN V1/V2], PROBABLY OLD INFERIOR MYOCARDIAL INFARCTION [40+ ms Q WAVE AND/OR ST/T ABNORMALITY IN II/aVF], PROBABLY OLD Electronically Signed On 04-11-2018 14:51:32 EDT by Zackery Valdovinos
--- NOTE | 2018-04-11 14:53 | Electrocardiograph Report ---
[facility] Test Date: 2018-04-10 Pat Name: Marino Waddell Department: 103 Room: 2A14 Gender: M Biologics Specialist: : 1955 Requested By: Silvio Vazquez Order Number: [id number] Salma MD: Zackery Valdovinos Measurements Intervals [place] Rate: 86 P: [place]: 0 QRS: -12 QRSD: 114 T: 62 QT: 389 QTc: 432 Interpretive Statements ATRIAL FIBRILLATION LOW QRS VOLTAGE IN PRECORDIAL LEADS [QRS DEFLECTION < 1.0 mV IN CHEST LEADS] POSSIBLE ANTERIOR MYOCARDIAL INFARCTION [30 ms Q WAVE IN V3/V4, OR R < 0.2 mV IN V4], OF INDETERMINATE AGE Electronically Signed On 04-11-2018 14:51:13 EDT by Zackery Valdovinos
[2018-04-11] MEDS: Metoprolol XL (24 HR) Succ 50 MG TAB.ER.24H PO SCH (17:53)
[2018-04-11] MEDS: amLODIPine 5 MG TABLET PO SCH (17:57)
--- NOTE | 2018-04-11 23:21 | Internal Med Progress Note ---
Date of Encounter: 04/11/18 Time of Encounter: 23:19 - Assessment and plan (1) PNA (pneumonia) Current Visit: Yes Status: Acute Assessment and plan: The patient may have pneumonia. See notes from infectious diseases.We will continue IV vancomycin, IV Zosyn and IV Levaquin. However, the patient has not experienced any fever or chills recently. His difficulty breathing quickly subsided. He is on his baseline oxygen. I am going to repeat his chest x-ray tomorrow morning. Qualifiers: Pneumonia type: due to unspecified organism Laterality: bilateral Lung location: unspecified part of lung Qualified Code(s): J18.9 - Pneumonia, unspecified organism (2) COPD exacerbation Current Visit: Yes Status: Acute Assessment and plan: We will continue antibiotics, as mentioned above. The patient is on IV Solu- Medrol. Will continue nebulizer treatments with Atrovent. He gets supplemental oxygen. (3) Hypertensive renal disease with renal failure Current Visit: Yes Status: Acute Assessment and plan: His blood pressure is currently out of control.We will continue Toprol-XL, Cozaar and Norvasc. He gets when necessary IV hydralazine. Nephrology is consulted. We will provide hemodialysis for the patient. (4) ESRD on hemodialysis Current Visit: Yes Status: Acute Assessment and plan: See above. - Time Spent With Patient Total time spent is greater than 50% in coordination of care (as documented) at patient's floor/unit and/or counseling patient: 25 - 35 minutes - Subjective Interval history: The patient feels good. He does have mild cough and a little bit of wheezing, bilaterally. Denies chest pain. Denies abdominal pain, nausea and vomiting. He has normal urination. He is using nasal cannula oxygen at 2.5 L/min. He was using it at 2 L/min at home. - Constitutional Vitals: Temp Pulse Resp BP Pulse Ox 98.4 F 71 16 179/74 96 04/11/18 19:32 04/11/18 19:32 04/11/18 22:06 04/11/18 20:11 04/11/18 22:17 General appearance: Present: A&O X 3, morbidly obese, no acute distress, answers questions appropriately - Respiratory Respiratory exam: Present: decreased breath sounds, CTAB. Absent: accessory muscle use, rales Additional comments: He has a few bilateral rhonchi and wheezes. - Cardiovascular Cardiovascular exam: Present: RRR, +S1, +S2. Absent: diastolic murmur, gallop, rubs, systolic murmur - GI/Abdominal GI/Abdominal exam: Present: normal bowel sounds, soft, no peritoneal signs. Absent: distended, tenderness Additional comments: His abdomen is very obese. - Skin Skin exam: Present: dry, intact Internal Medicine: Result - Labs CBC & Chem 7: 04/12/18 06:20 04/12/18 06:20 Labs: Short CBC 04/11/18 Range/Units 00:22 WBC 4.8 (4.3-11.1) K/mcL Hgb 8.9 L (12.9-16.9) g/dL Hct 27.0 L (37.5-50.1) % Plt Count 111 L (140-400) K/mcL Neutrophils # 4.3 (1.6-8.9) K/mcL BMP 04/11/18 00:22 Sodium 138 Potassium 5.0 Chloride 96 L Carbon Dioxide 26 BUN 54 H Creatinine 7.31 H Glucose 306 H Calcium 8.7 Cardiac Enzymes 04/11/18 04/11/18 Range/Units 00:22 06:54 Troponin I 0.29 H* 0.27 H* (< 0.04) ng/mL - Impressions Impressions Echocardiogram 04/10/18 18:26 Impressions: Technically sub-optimal due to body habitus. LVEF 55%. Despite Definity contrast, not all segments were well visualized. Overall, LVEF appeared normal. Grossly, moderate concentric left ventricular hypertrophy. Indeterminate diastolic function. Grossly, dilated right ventricle with normal appearing function. No evidence of pulmonary hypertension identified. RVSP not well obtained and could be underestimated. No obvious significant valvular dysfunction. Left Ventricular Wall Motion: Rest Echo Findings All wall segments showed normal motion. Findings: Study Quality * Technically sub-optimal due to body habitus. ECG Findings * Normal sinus rhythm. Left Ventricle * LVEF 55%. Despite Definity contrast, not all segments were well visualized. Overall, LVEF appeared normal. * Grossly, moderate concentric left ventricular hypertrophy. * Indeterminate diastolic function. Right Ventricle * Grossly, dilated right ventricle with normal appearing function. Left Atrium * Severely dilated left atrium. Right Atrium * Moderately dilated right atrium. Aortic Valve * Trileaflet aortic valve. * Focally calcified noncoronary cusp. * No aortic regurgitation. * No aortic stenosis. Mitral Valve * Normal mitral valve structure and function. * Trace mitral regurgitation. * No mitral stenosis. Tricuspid Valve * Normal tricuspid valve structure and function. * Trace tricuspid regurgitation. * No evidence of pulmonary hypertension identified. RVSP not well obtained and could be underestimated. Pulmonic Valve * Pulmonic valve not well visualized. * No pulmonic regurgitation. Aorta * Normally sized aortic root. Pericardium * The pericardium appears normal. IVC * The IVC is dilated. * > 50% respiratory change Pulmonary Artery * Normal visualized portions of the main pulmonary artery. Chest X-Ray 04/11/18 18:01 IMPRESSION: 1. Resolution of the previously identified right basilar opacities. 2. Mild vascular congestion and trace pleural effusions. D/ / Dg Preciado MD / Dg Preciado MD Interpreting Provider: Dg Preciado MD - VTE Deep Vein Thrombosis/Pulmonary Embolism Present on Admission: No Consult Discharge Plan - Plan Referrals: Silvio Wheeler DO [Primary Care Provider] - 04/24/18 12:00 pm (Please follow up as schedule....)
[2018-04-12] MEDS: MethylPREDNISolone 40 MG/ML VIAL IVP SCH ×3 (00:42→17:10)
[2018-04-12] MEDS: Piperacillin/Tazobactam 3.375 GM in 0.9 % Sodium Chloride Mini Bag 100 ML IVPB SCH ×2 (03:08→17:12)
[2018-04-12] MEDS: Ipratropium Neb 0.5 MG NEBULIZER IH SCH ×4 (04:25→23:11)
[2018-04-12 05:21] LABS: ABG Base Excess 9 mEq/L (-2 to 3); ABG HCO3 34 mEq/L (21-27); ABG Oxygen Saturation 97 % (95-98); ABG PCO2 45 mmHg (35-45); ABG PH 7.48 pH Units (7.32-7.45); ABG PO2 80 mmHg (85-104); ABG TCO2 35 mEq/L (20-26); Blood Gas FiO2 2.5 (1-15=lpm or21-100=%)
[2018-04-12] MEDS: *HR* Heparin 5,000 UNIT/ML VIAL SQ SCH ×2 (05:36→17:28)
[2018-04-12 07:08] LABS: Hemoglobin 8.9 g/dL (12.9-16.9); Mean Corpuscular HGB Conc 31.8 g/dL (31.6-35.5); Mean Corpuscular Hemoglobin 32.4 pg (28.0-33.3); Mean Corpuscular Volume 101.8 fL (83.0-100.0); Mean Platelet Volume 11.6 fL (9.4-12.4); Platelet Count 117 K/mcL (140-400); Red Blood Count 2.75 M/mcL (4.19-5.50); Red Cell Distribution Width 15.3 % (11.5-14.5)
[2018-04-12 07:21] LABS: Calcium 9.2 mg/dL (8.6-10.3); Potassium 4.4 mEq/L (3.5-5.1)
[2018-04-12] MEDS ORDERED: 0.9 % Sodium Chloride 2,000 ML ONE (07:31)
[2018-04-12] MEDS ORDERED: 0.9 % Sodium Chloride 250 ML IVC PRN (07:39)
[2018-04-12] MEDS ORDERED: 0.9 % Sodium Chloride 1,000 ML PRIME SCH (07:45)
[2018-04-12] MEDS: Insulin DETEMIR 100 UNIT/ML X5UNITS SQ SCH ×2 (08:21→22:00)
[2018-04-12] MEDS: Aspirin Enteric Coated 81 MG Tablet PO SCH (08:22)
[2018-04-12] MEDS: Insulin LISPRO 300 UNITS/3 ML VIAL SQ SCH ×4 (08:22→21:58)
[2018-04-12] MEDS: Metoprolol XL (24 HR) Succ 50 MG TAB.ER.24H PO SCH (08:23)
[2018-04-12] MEDS: Acetaminophen 325 MG TABLET PO SCH ×2 (08:23→21:59)
[2018-04-12] MEDS: amLODIPine 5 MG TABLET PO SCH (08:23)
[2018-04-12] MEDS: Cholecalciferol (D-3) 1,000 UNIT TABLET PO SCH (08:23)
[2018-04-12] MEDS: Fluticasone Propionate Nasal 50 MCG/SPRAY BOTTLE NS SCH (08:32)
[2018-04-12] MEDS ORDERED: Levofloxacin 500 MG/100 ML 500 MG/100 ML BAG IVPB SCH ×2 (09:00→16:00)
--- NOTE | 2018-04-12 10:28 | Nephrology Progress Note ---
Date of Encounter: 04/12/18 Time of Encounter: 10:26 - Assessment and Plan (1) ESRD on hemodialysis Current Visit: Yes Status: Acute 5 kilos removed with HD yesterday Ultrafiltration today with goal of 3-4 kilos Needs renal diet-ordered Needs fluid restriction of 1.5 liters/day-ordered Avoid nephrotoxins if possible Plan for HD tomorrow (2) Anemia Current Visit: Yes Status: Acute Hgb 8.9 Goal hgb 10-11 Transfuse per parameters Qualifiers: Anemia type: due to chronic kidney disease Chronic kidney disease stage: on chronic dialysis Qualified Code(s): N18.6 - End stage renal disease; D63.1 - Anemia in chronic kidney disease; Z99.2 - Dependence on renal dialysis (3) Acute exacerbation of chronic obstructive airways disease Current Visit: Yes Status: Acute per primary team Subjective Principal diagnosis: CHF, ESRD on HD Interval history: Patient seen and examined in dialysis; sleeping soundly. Objective - Vital Signs Vital signs: Vital Signs Temp Pulse Resp BP Pulse Ox 04/12/18 10:15 175/85 04/12/18 10:00 172/82 04/12/18 09:45 181/81 04/12/18 09:30 171/66 04/12/18 09:15 156/63 04/12/18 09:00 164/70 04/12/18 08:45 97.5 F L 18 157/66 04/12/18 07:00 98.3 F 68 16 180/86 98 04/12/18 06:14 96 04/12/18 04:27 18 98 04/12/18 04:26 98.4 F 63 18 187/69 96 04/11/18 23:55 98 F 83 18 178/75 94 04/11/18 22:17 96 04/11/18 22:06 16 98 04/11/18 20:19 98 04/11/18 20:11 179/74 04/11/18 19:32 98.4 F 71 18 191/78 98 04/11/18 16:39 98.1 F 68 19 169/70 97 04/11/18 15:45 97.7 F 15 160/45 04/11/18 15:42 16 99 04/11/18 15:30 145/55 04/11/18 15:15 143/61 04/11/18 15:00 149/42 06/20/18 14:45 136/53 04/11/18 14:30 166/61 04/11/18 14:15 164/76 04/11/18 14:00 164/74 04/11/18 13:45 145/61 04/11/18 13:30 158/65 04/11/18 13:15 164/67 04/11/18 13:00 175/69 04/11/18 12:45 172/51 04/11/18 12:30 186/75 04/11/18 12:15 182/66 04/11/18 12:00 185/77 04/11/18 11:45 181/73 04/11/18 11:30 97.2 F L 15 187/88 04/11/18 10:57 16 94 Intake and Output 04/11/18 04/12/18 04/12/18 23:59 07:59 15:59 Intake Total 220 / 220 600 / 600 Balance 220 / 220 600 / 600 Intake: IV Fluids 100 / 100 Zosyn 3.375 GM In 0.9 % Sodium 100 / 100 Chloride (Mini-Bag +) 100 ML @ 25 mls/hr IVPB Q12H [facility] Rx#: [id number] Oral 120 / 120 0 / 0 Intake, Rinseback and Flushes 600 / 600 Other: Meal Dinner Percent of Meal Consumed 100% Blood Glucose* 186 184 Hemodialysis Net Fluid Removed 3458 (mL) - General Appearance General appearance: Present: obese EENT: Present: ATNC Neck: Present: supple Respiratory: Present: clear Cardiology: Present: no edema, regular rate, regular rhythm Dialysis Vascular Access: Arteriovenous Fistula Gastrointestinal: Present: no guarding, obese Integumentary: Present: warm and dry - Lab 04/12/18 06:20 04/12/18 06:20 Most recent lab results ABG pH 7.48 pH Units (7.32-7.45) H 04/12/18 05:18 ABG pCO2 45 mmHg (35-45) 04/12/18 05:18 ABG pO2 80 mmHg (85-104) L 04/12/18 05:18 ABG HCO3 34 mEq/L (21-27) H 04/12/18 05:18 ABG O2 Saturation 97 % (95-98) 06/21/18 05:18 Calcium 9.2 mg/dL (8.6-10.3) 04/12/18 06:20 Consult Discharge Plan - Plan Referrals: Silvio Wheeler DO [Primary Care Provider] - 04/24/18 12:00 pm (Please follow up as schedule....)
[2018-04-12] MEDS: Budesonide/Formoterol 80/4.5 MDI IH SCH ×2 (10:32→23:11)
--- NOTE | 2018-04-12 22:04 | Internal Med Progress Note ---
Date of Encounter: 04/12/18 Time of Encounter: 22:03 - Assessment and plan (1) COPD exacerbation Current Visit: Yes Status: Acute Assessment and plan: His breathing is definitely better.We will discontinue IV Solu-Medrol. Will offer him nebulizer treatments with Pulmicort. Will continue nebulizer treatments with Atrovent. He is on IV Levaquin. (2) PNA (pneumonia) Current Visit: Yes Status: Ruled-out Assessment and plan: I doubt this patient has pneumonia. His chest x-ray from yesterday evening showed normal findings. His WBC count is only 6.8 thousand. He has no fever/ chills.I will stop IV vancomycin and IV Zosyn. I will continue IV Levaquin, as he has had exacerbation of COPD (mild). Qualifiers: Pneumonia type: due to unspecified organism Laterality: bilateral Lung location: unspecified part of lung Qualified Code(s): J18.9 - Pneumonia, unspecified organism (3) Hypertensive renal disease with renal failure Current Visit: Yes Status: Acute Assessment and plan: His blood pressure continues to be out of control. It should get better after stopping IV Solu-Medrol. Will continue Toprol-XL, Cozaar and Norvasc. He will continue hemodialysis. See nephrology notes. (4) ESRD on hemodialysis Current Visit: Yes Status: Acute Assessment and plan: We will continue hemodialysis, as per nephrology. - Time Spent With Patient Total time spent is greater than 50% in coordination of care (as documented) at patient's floor/unit and/or counseling patient: 25 - 35 minutes - Subjective Interval history: The patient tells me that he is breathing is pretty much baseline. He does have mild cough but no wheezing. Denies chest pain. Denies resting dyspnea. He is on supplemental oxygen at 2 L/min; like at home. Denies abdominal pain, nausea and vomiting. He has normal urination. - Constitutional Vitals: Temp Pulse Resp BP Pulse Ox 97.6 F 65 18 180/75 100 04/12/18 18:42 04/12/18 18:42 04/12/18 18:42 04/12/18 18:42 04/12/18 18:42 General appearance: Present: A&O X 3, morbidly obese, no acute distress, answers questions appropriately - Respiratory Respiratory exam: Present: CTAB. Absent: accessory muscle use, rales, rhonchi, wheezes - Cardiovascular Cardiovascular exam: Present: RRR, +S1, +S2. Absent: diastolic murmur, gallop, rubs, systolic murmur - GI/Abdominal GI/Abdominal exam: Present: normal bowel sounds, soft, no peritoneal signs. Absent: distended, tenderness Additional comments: His abdomen is very obese. Internal Medicine: Result - Labs CBC & Chem 7: 04/12/18 06:20 04/12/18 06:20 Labs: Short CBC 04/12/18 Range/Units 06:20 WBC 6.8 (4.3-11.1) K/mcL Hgb 8.9 L (12.9-16.9) g/dL Hct 28.0 L (37.5-50.1) % Plt Count 117 L (140-400) K/mcL BMP 04/12/18 06:20 Sodium 140 Potassium 4.4 Chloride 97 L Carbon Dioxide 30 H BUN 39 H Creatinine 5.89 H Glucose 169 H Calcium 9.2 - ABG Interpretation ABG results: ABG ABG pH 7.48 pH Units (7.32-7.45) H 04/12/18 05:18 ABG pCO2 45 mmHg (35-45) 04/12/18 05:18 ABG pO2 80 mmHg (85-104) L 04/12/18 05:18 ABG O2 Saturation 97 % (95-98) 04/12/18 05:18 - VTE Deep Vein Thrombosis/Pulmonary Embolism Present on Admission: No Consult Discharge Plan - Plan Additional Instructions: I anticipate the patient's discharge sometime tomorrow. Referrals: Silvio Wheeler DO [Primary Care Provider] - 04/24/18 12:00 pm (Please follow up as schedule....)
[2018-04-13 04:23] LABS: Hematocrit 30.2 % (37.5-50.1); Hemoglobin 9.6 g/dL (12.9-16.9); Mean Corpuscular HGB Conc 31.8 g/dL (31.6-35.5); Mean Corpuscular Hemoglobin 31.8 pg (28.0-33.3); Mean Platelet Volume 11.3 fL (9.4-12.4); Platelet Count 152 K/mcL (140-400); Red Blood Count 3.02 M/mcL (4.19-5.50); Red Cell Distribution Width 14.9 % (11.5-14.5)
[2018-04-13] MEDS: Ipratropium Neb 0.5 MG NEBULIZER IH SCH ×3 (04:25→15:32)
[2018-04-13 04:44] LABS: Calcium 9.2 mg/dL (8.6-10.3); Potassium 4.8 mEq/L (3.5-5.1)
[2018-04-13] MEDS: *HR* Heparin 5,000 UNIT/ML VIAL SQ SCH (06:27)
[2018-04-13] MEDS: Insulin LISPRO 300 UNITS/3 ML VIAL SQ SCH ×2 (07:18→12:54)
[2018-04-13] MEDS: Metoprolol XL (24 HR) Succ 50 MG TAB.ER.24H PO SCH (07:18)
[2018-04-13] MEDS: Acetaminophen 325 MG TABLET PO SCH (07:19)
[2018-04-13] MEDS: Aspirin Enteric Coated 81 MG Tablet PO SCH (07:19)
[2018-04-13] MEDS: amLODIPine 5 MG TABLET PO SCH (07:19)
[2018-04-13] MEDS: Cholecalciferol (D-3) 1,000 UNIT TABLET PO SCH (07:19)
[2018-04-13] MEDS: Fluticasone Propionate Nasal 50 MCG/SPRAY BOTTLE NS SCH (07:19)
[2018-04-13] MEDS: Insulin DETEMIR 100 UNIT/ML X5UNITS SQ SCH (07:19)
[2018-04-13] MEDS ORDERED: 0.9 % Sodium Chloride 1,000 ML ONE (07:21)
[2018-04-13] MEDS ORDERED: 0.9 % Sodium Chloride 250 ML IVC PRN (07:48)
[2018-04-13] MEDS ORDERED: 0.9 % Sodium Chloride 1,000 ML PRIME SCH (08:00)
--- NOTE | 2018-04-13 10:34 | Nephrology Progress Note ---
Date of Encounter: 04/13/18 Time of Encounter: 10:32 - Assessment and Plan (1) ESRD on hemodialysis Current Visit: Yes Status: Acute HD MWF. Renal vitamins. Renal dose medications. Renal diet. Additional dialysis and ultrafiltration as needed. Patient was seen on dialysis today. (2) Anemia Current Visit: Yes Status: Acute Hemoglobin is stable. Qualifiers: Anemia type: due to chronic kidney disease Chronic kidney disease stage: on chronic dialysis Qualified Code(s): N18.6 - End stage renal disease; D63.1 - Anemia in chronic kidney disease; Z99.2 - Dependence on renal dialysis (3) COPD exacerbation Current Visit: Yes Status: Acute Improved. Subjective Principal diagnosis: CHF, ESRD on HD Interval history: Mr. Waddell was seen on dialysis. Objective - Vital Signs Vital signs: Vital Signs Temp Pulse Resp BP Pulse Ox 04/13/18 10:15 164/67 04/13/18 10:00 149/67 04/13/18 09:45 169/74 04/13/18 09:30 168/76 04/13/18 09:15 172/74 04/13/18 09:00 167/74 04/13/18 08:45 185/85 04/13/18 08:30 97.1 F L 16 169/74 04/13/18 07:07 98.5 F 61 16 198/79 96 04/13/18 04:26 18 92 04/13/18 03:41 98.4 F 66 18 188/70 97 04/12/18 23:57 97.8 F 70 18 168/63 94 04/12/18 23:13 18 97 04/12/18 18:42 97.6 F 65 18 180/75 100 04/12/18 16:04 98.9 F 60 16 182/68 100 04/12/18 15:22 18 97 04/12/18 11:05 97.5 F L 16 176/65 04/12/18 10:45 172/73 Intake and Output 04/12/18 04/13/18 04/13/18 23:59 07:59 15:59 Intake Total 840 / 840 Balance 840 / 840 Intake: Oral 240 / 240 Intake, Rinseback and Flushes 600 / 600 Other: Meal Breakfast Percent of Meal Consumed 100% Weight 136.078 kg Blood Glucose* 299 136 Hemodialysis Net Fluid Removed 2456 (mL) Patient Weight 04/13/18 23:59 Weight 136.078 kg - General Appearance General appearance: Present: well-developed, well-nourished, obese EENT: Present: ATNC Respiratory: Present: course breath sounds Cardiology: Present: edema Gastrointestinal: Present: normoactive bowel sounds, obese Integumentary: Present: warm and dry - Lab 04/13/18 03:40 04/13/18 03:40 Most recent lab results ABG pH 7.48 pH Units (7.32-7.45) H 04/12/18 05:18 ABG pCO2 45 mmHg (35-45) 04/12/18 05:18 ABG pO2 80 mmHg (85-104) L 04/12/18 05:18 ABG HCO3 34 mEq/L (21-27) H 04/12/18 05:18 ABG O2 Saturation 97 % (95-98) 04/12/18 05:18 Calcium 9.2 mg/dL (8.6-10.3) 04/13/18 03:40 - VTE Deep Vein Thrombosis/Pulmonary Embolism Present on Admission: No Consult Discharge Plan - Plan Additional Instructions: I anticipate the patient's discharge sometime tomorrow. Referrals: Silvio Wheeler DO [Primary Care Provider] - 04/24/18 12:00 pm (Please follow up as schedule....)
[2018-04-13] MEDS: Budesonide/Formoterol 80/4.5 MDI IH SCH (10:44)
[2018-04-13 12:54] VITALS: BP 141/61
--- NOTE | 2018-04-13 14:19 | Discharge Summary ---
- NOTES TO OUTPATIENT PROVIDER Notes to Outpatient Provider: The patient was admitted with shortness of breath. We initially thought that he might have for pneumonia with sepsis. However, his yesterday chest x-ray shows normal. His WBC count was normal all the way during this hospitalization. He feels baseline; his oxygen consumption is baseline, too. His difficulty breathing could be due to exacerbation of COPD. It could be also due to fluid overload in end-stage renal disease; he takes hemodialysis. Orders not resulted at time of discharge: Pending orders 04/14/18 04:00 Basic Metabolic Panel AM 040 CBC no Diff [Complete Blood Count w/o Diff] [HEME] AM 040 Date of Encounter: 04/13/18 Time of Encounter: 14:16 - Discharge Diagnosis (1) COPD exacerbation Status: Acute (2) PNA (pneumonia) Status: Ruled-out Qualifiers: Pneumonia type: due to unspecified organism Laterality: bilateral Lung location: unspecified part of lung Qualified Code(s): J18.9 - Pneumonia, unspecified organism (3) Hypertensive renal disease with renal failure Status: Acute (4) ESRD on hemodialysis Status: Acute Hospital course: Mr. Waddell is a 62 year old male Discharge discussed with: patient, family, nurse, social work - Time Spent with Patient Total time spent providing and/or coordinating discharge services: Greater than 30 minutes (45 MINUTES) - Discharge Medications Prescriptions: Carvedilol [Coreg] 6.25 mg PO BIDWM #60 tablet Home Medications: Gemfibrozil [Lopid] 600 mg PO DAILY 07/07/15 [History] Insulin ASPART [NovoLOG] 2 - 7 unit SQ ACHS 07/07/15 [History] Ipratropium/Albuterol Sulfate [Combivent Respimat Inhal [place]] 4 gm IH QID PRN 07/07/15 [History] Levothyroxine [Synthroid] 150 mcg PO DAILY 07/07/15 [History] Pravastatin Sodium [Pravachol] 40 mg PO DAILY 07/07/15 [History] Acetaminophen 650 mg PO BID 06/07/16 [History] Montelukast [Singulair] 10 mg PO HS 06/07/16 [History] Pantoprazole Sodium [Protonix] 20 mg PO DAILY 06/07/16 [History] Insulin Glargine,Hum.rec.anlog [[place] Solostar] 80 units SQ BID 06/08/16 [ History] Fluticasone Propionate Nasal [Flonase] 1 spray NS DAILY 06/10/16 [History] Amlodipine Besylate 10 mg PO DAILY 04/10/18 [History] Calcium Carbonate/Vitamin D3 [Liquid Calcium 600-Vit D3 Sfgl] 2 each PO BID [History] Fluticasone/Salmeterol [Advair 250-50 Diskus] 1 puff IH BID 04/10/18 [History] HydrOXYzine 10 mg PO TID 04/10/18 [History] Ipratropium Neb [Atrovent Neb] 0.5 mg IH QID 04/10/18 [History] Losartan Potassium [Cozaar] 50 mg PO DAILY 04/10/18 [History] Multivitamin [One Daily Essential] 1 tab PO DAILY 04/10/18 [History] Nystatin/Triamcinolone CRM [Mycolog] 1 appl TP BID 04/10/18 [History] Ondansetron HCl 4 mg PO Q8H PRN 04/10/18 [History] Sevelamer [Renvela] 1,600 mg PO PRN PRN 04/10/18 [History] Sevelamer [Renvela] 3,200 mg PO TIDWM 04/10/18 [History] Tramadol HCl [Ultram] 100 mg PO Q6H PRN 04/10/18 [History] Carvedilol [Coreg] 6.25 mg PO BIDWM #60 tablet 04/13/18 [Rx] Allergies/Adverse Reactions: 3 Allergy/AdvReac Type Severity Reaction Status Date / Time Amoxicillin [From Augmentin] Allergy Diarrhea Verified 04/10/18 14:47 cephalexin [From Keflex] Allergy Rash Verified 04/10/18 14:47 ciprofloxacin Allergy Hives Verified 04/10/18 14:47 clavulanic acid Allergy Diarrhea Verified 04/10/18 14:47 [From Augmentin] codeine Allergy Rash Verified 04/10/18 14:47 hydrocodone Allergy Rash Verified 04/10/18 14:47 morphine Allergy Vomiting Verified 04/10/18 14:47 nabumetone [From Relafen] Allergy Anxiety Verified 04/10/18 14:47 Date of admission: 04/10/18 18:16 Primary care physician: Dary Nelson Consults: 04/10/18 18:26 Consult to Cardiology [CONS] Routine Comment: Consulting Provider: Cardiology Karie Reason for Consult: chf and elevated troponin Call Completed: Yes 04/10/18 18:27 Consult to Nephrology [CONS] Routine Consulting Provider: Kidney Karie/[facility] Reason for Consult: ESRD Call Completed: Yes 04/11/18 10:15 Consult to Dialysis [CONS] ONCE 04/12/18 07:45 Consult to Dialysis [CONS] ONCE 04/13/18 08:00 Consult to Dialysis [CONS] ONCE Discharging clinician: Zhang Reynaga Anticipated date of discharge: 04/13/18 - Constitutional Vitals: Temp Pulse Resp BP Pulse Ox 98.9 F 61 18 141/61 96 04/13/18 12:48 04/13/18 07:07 04/13/18 12:48 04/13/18 12:48 04/13/18 07:07 General appearance: Present: A&O X 3, morbidly obese, no acute distress, answers questions appropriately - Respiratory Respiratory exam: Present: CTAB. Absent: accessory muscle use, rales, rhonchi, wheezes - Cardiovascular Cardiovascular exam: Present: RRR, +S1, +S2. Absent: diastolic murmur, gallop, rubs, systolic murmur - GI/Abdominal GI/Abdominal exam: Present: normal bowel sounds, soft, no peritoneal signs. Absent: distended, tenderness - Patient Status Disposition: Home, Self-Care Condition: Fair Functional capacity at discharge: independent ambulation Overall status at discharge: patient is back to baseline - Discharge Instructions Instructions: Chronic Obstructive Pulmonary Disease (DC), Pneumonia (DC) Follow Up With: Silvio Wheeler DO [Primary Care Provider] - 04/24/18 12:00 pm (Please follow up as schedule....) Additional Instructions: I anticipate the patient's discharge sometime tomorrow. - Diet and Activity Activity: resume usual activities as tolerated - VTE Deep Vein Thrombosis/Pulmonary Embolism Present on Admission: No
--- NOTE | 2018-04-13 16:16 | Physician Discharge Referral ---
Home Health/Hosp Referral Info Transfer to: Home Health Attending Provider: Rajwinder Reynaga Provider in Charge Post Discharge: PCP - Diagnosis (1) COPD exacerbation Status: Acute (2) Hypertensive renal disease with renal failure Status: Acute (3) ESRD on hemodialysis Status: Acute - Respiratory Orders Oxygen / L per min (2.5 l/min) Smoking Cessation: Smoking cessation has been advised. For more information, call the [employer] Tobacco Quit Line at 3-091-MFJZ-NOW. - Diet/Nutrition Diet/Nutrition Orders: Cardiac - Activity Activity Orders: Ambulate - Services Needed Following services are medically necessary services: Nursing, Physical Therapy - Transfer Medications Prescriptions: Carvedilol [Coreg] 6.25 mg PO BIDWM #60 tablet Home Medications: Gemfibrozil [Lopid] 600 mg PO DAILY 07/07/15 [History] Insulin ASPART [NovoLOG] 2 - 7 unit SQ ACHS 07/07/15 [History] Ipratropium/Albuterol Sulfate [Combivent Respimat Inhal [place]] 4 gm IH QID PRN 07/07/15 [History] Levothyroxine [Synthroid] 150 mcg PO DAILY 07/07/15 [History] Pravastatin Sodium [Pravachol] 40 mg PO DAILY 07/07/15 [History] Acetaminophen 650 mg PO BID 06/07/16 [History] Montelukast [Singulair] 10 mg PO HS 06/07/16 [History] Pantoprazole Sodium [Protonix] 20 mg PO DAILY 06/07/16 [History] Insulin Glargine,Hum.rec.anlog [[place] Solostar] 80 units SQ BID 06/08/16 [ History] Fluticasone Propionate Nasal [Flonase] 1 spray NS DAILY 06/10/16 [History] Amlodipine Besylate 10 mg PO DAILY 04/10/18 [History] Calcium Carbonate/Vitamin D3 [Liquid Calcium 600-Vit D3 Sfgl] 2 each PO BID [History] Fluticasone/Salmeterol [Advair 250-50 Diskus] 1 puff IH BID 04/10/18 [History] HydrOXYzine 10 mg PO TID 04/10/18 [History] Ipratropium Neb [Atrovent Neb] 0.5 mg IH QID 04/10/18 [History] Losartan Potassium [Cozaar] 50 mg PO DAILY 04/10/18 [History] Multivitamin [One Daily Essential] 1 tab PO DAILY 04/10/18 [History] Nystatin/Triamcinolone CRM [Mycolog] 1 appl TP BID 04/10/18 [History] Ondansetron HCl 4 mg PO Q8H PRN 04/10/18 [History] Sevelamer [Renvela] 1,600 mg PO PRN PRN 04/10/18 [History] Sevelamer [Renvela] 3,200 mg PO TIDWM 04/10/18 [History] Tramadol HCl [Ultram] 100 mg PO Q6H PRN 04/10/18 [History] Carvedilol [Coreg] 6.25 mg PO BIDWM #60 tablet 04/13/18 [Rx] Allergies/Adverse Reactions: 3 Allergy/AdvReac Type Severity Reaction Status Date / Time Amoxicillin [From Augmentin] Allergy Diarrhea Verified 04/10/18 14:47 cephalexin [From Keflex] Allergy Rash Verified 04/10/18 14:47 ciprofloxacin Allergy Hives Verified 04/10/18 14:47 clavulanic acid Allergy Diarrhea Verified 04/10/18 14:47 [From Augmentin] codeine Allergy Rash Verified 04/10/18 14:47 hydrocodone Allergy Rash Verified 04/10/18 14:47 morphine Allergy Vomiting Verified 04/10/18 14:47 nabumetone [From Relafen] Allergy Anxiety Verified 04/10/18 14:47 Certification: Further, I certify that my clinical findings support that this patient is homebound (i.e. absences from home require considerable and taxing effort and are for medical reasons or mosque services or infrequently or short duration when for other reasons) because: Homebound Reason: Patient requires assistance of a person or device to safely leave home Attestation: My signature below is to certify that this patient is under my care and that I, or nurse practitioner, or a physician's review assistant working with me, has a face-to -face encounter with this patient.
== END 2018-04-13 15:40 | disposition home or self-care (01) | DRG 140 ==
LOC: EMEROO 12:34 → 2ANU 12:34 → SUATTDRO 18:16 → 2ANU 04-13 04:29
PROVIDERS: ADMIT Hospitalist; ATTEND Internal Medicine